=== PATIENT | male | born 1970 | race African-American/Black ===

== ENCOUNTER 2020-09-02 22:57 | Emergency (ER) | payer BC ==
[~2020-09-02] VITALS: Ht 188 cm; Wt 104.5 kg
[2020-09-02 23:03] VITALS: BP 141/96
[2020-09-02] MEDS ORDERED: TETRACAINE 0.5% OPHTH SOLUTION 4ML BOTTLE. ONE (23:12)
[2020-09-02] MEDS ORDERED: FLUORESCEIN OPHTH TEST STRIP. ONE (23:12)
[2020-09-02] MEDS ORDERED: FLUORESCEIN OPHTH TEST STRIP. OS ONE (23:30)
[2020-09-02] MEDS ORDERED: TETRACAINE 0.5% OPHTH SOLUTION 4ML BOTTLE. OS ONE (23:30)
--- NOTE | 2020-09-02 23:35 | PHYS DOC ---
Past Medical History Past Medical History: No Pertinent History Past Surgical History: No Surgical History Additional Past Surgical Histo: R knee sx Smoking Status: Never Smoker Alcohol Use: Occasionally Drug Use: None General Adult EDM: Chief Complaint: FOREIGN BODY/EYES HPI: HPI: Patient is a 50 year old -[place] male with past medical history of right retinal detachment, presents for foreign body in the left eye. Patient reports that he was cutting wood at 10 PM, when a piece of wood hit him in the left eye. He felt the wood went into his eye and he had tried washed the eye with water and eyedrops with no relief of symptoms. Patient has been rubbing his eyes since. His eye was not painful but irritated and feels something is in there. Patient also had issue focusing with the left eye. Patient denies any fever, chills, nausea and vomiting, shortness of air, cough, abdominal pain, and constipation or diarrhea. Patient is the main historian. Review of Systems: Review of Systems: Review of systems: Constitutional symptoms- No fever, no chills. Eyes-feels there are foreign objects in the left eye. Respiratory symptoms- No shortness of breath, No wheezing, No Dyspnea on Exertion Cardiovascular Systems; No chest pain, No Palpitations, No syncope Gastrointestinal symptoms: NO abdominal pain, no nausea, no vomiting or diarrhea. Genitourinary symptoms: No dysuria. Musculoskeletal symptoms: No back pain No extremity pain. NEUROLOGICAL Symptoms: No headache, no generalized weakness; No focal Weakness Heart Score: C/O Chest Pain: No Risk Factors: Risk Factors: DM, Current or recent (<one month) smoker, HTN, HLP, family history of CAD, obesity. Risk Scores: Score 0 - 3: 2.5% MACE over next 6 weeks - Discharge Home Score 4 - 6: 20.3% MACE over next 6 weeks - Admit for Clinical Observation Score 7 - 10: 72.7% MACE over next 6 weeks - Early Invasive Strategies Current Medications: Current Medications Medications (Trade) Dose Ordered Sig/Lexis Start Time Stop Time Status Last Admin Dose Admin Fluorescein Sodium (Ful-[place]) 1 strip 1X ONCE 09/02/20 23:30 09/02/20 23:31 09/02/20 23:27 1 STRIP Tetracaine HCl (Tetracaine) 1 drop 1X ONCE 09/02/20 23:30 09/02/20 23:31 09/02/20 23:28 1 DROP Allergies: Allergies: Allergies Coded Allergies Type Severity Reaction Last Updated Verified No Known Drug Allergies 11/06/14 No Physical Exam: PE: General: alert, no acute distress. Skin: warm, dry and intact. Head:: Normocephalic, atraumatic. Neck: Trachea midline. Eyes: Injected left conjunctiva, left eyelid appears irritated. No visible objects above or below the eyeball. Fluorescein eye exam unremarkable CARDIOVASCULAR: Regular rate and rhythm RESPIRATORY: No respiratory distress Back: Full range of motion. MUSCULOSKELETAL: Full range of motion of bilateral upper and lower extremities. GASTROINTESTINAL: Abdomen soft without rebound or guarding. NEUROLOGICAL: Alert and noted to person, place and time. No neurological deficits observed Psychiatric: Cooperative. Normal judgment Left eye examined. Anesthesia with tetracaine. Upper and lower lids inverted. I did not find a wooden foreign body. I did remove an eyelash from the underneath the left upper eyelid. Patient's eye was stained with fluorescein no dye uptake. External ocular muscles intact pupils equal round reactive to light and accommodation EKG: EKG: [] Radiology/Procedures: Radiology/Procedures: [] Course & Med Decision Making: Course & Med Decision Making Pertinent Labs and Imaging studies reviewed. (See chart for details) [] Marco Antonio lens was used to irrigate patient's eye. He was discharged home with Levaquin Tylenol 3 referred to ophthalmology. Bobby Disclaimer: Bobby Disclaimer: This electronic medical record was generated, in whole or in part, using a voice recognition dictation system. Departure Departure Impression: Primary Impression: Eye foreign body Disposition: 01 ME HOME SELF CARE/HOMELESS Condition: STABLE Referrals: NO PCP (PCP) AMINTA SCHULTE MD Patient Instructions: Eye - Foreign Body Scripts Levofloxacin (LEVOFLOXACIN 0.5% OPTH) 5 Ml Drops 1 DROP EACHEYE QID for 5 Days, #5 ML 0 Refills Prov: CHRISTINE AMBROCIO Refugio DO 09/02/20 Acetaminophen With Codeine (ACETAMINOPHEN-COD #3 TABLET) 1 Each Tablet 1 TAB PO PRN Q6HRS PRN for PAIN, #14 TAB Prov: LOLLYCHRISTINE Refugio DO 09/02/20 CHRISTINE AMBROCIO I DO Sep 02, 2020 23:35
[2020-09-02] MEDS ORDERED: LEVO5DRO3 EACHEYE (23:44)
[2020-09-02] MEDS ORDERED: ACET1TAB33 PO (23:44)
== END 2020-09-03 00:20 | disposition home or self-care (01) ==
LOC: ER 22:57
DX: T15.92XA Foreign body on external eye, part unspecified, left eye, initial encounter (principal); X58.XXXA Exposure to other specified factors, initial encounter; Y93.89 Activity, other specified; Y92.89 Other specified places as the place of occurrence of the external cause; Y99.8 Other external cause status
CPT/HCPCS: 99284